=== PATIENT | female | born 1965 | race Caucasian/White ===

== ENCOUNTER → 2024-02-09 17:07 | Outpatient (REF) | payer OTHER, SELFPAY | LOC: RAD 17:07 | PROVIDERS: ATTENDING PHYSICIAN Physician Assistant Medical | DX: R07.89 Other chest pain (principal) | CPT/HCPCS: 71046 ==

== ENCOUNTER → 2024-11-17 11:02 | Outpatient (REF) | payer OTHER, SELFPAY | LOC: HWWDC 11:02 | PROVIDERS: ATTENDING PHYSICIAN Physician Assistant Medical | DX: Z12.31 Encounter for screening mammogram for malignant neoplasm of breast (principal); Z13.820 Encounter for screening for osteoporosis | CPT/HCPCS: 77063; 77067; 77080 ==

== ENCOUNTER → 2025-03-01 15:03 | Outpatient (REF) | payer OTHER, SELFPAY | LOC: WDC 15:03 | PROVIDERS: ATTENDING PHYSICIAN Physician Assistant Medical | DX: R92.30 Dense breasts, unspecified (principal) | CPT/HCPCS: 76641 ==

== ENCOUNTER → 2025-07-21 07:15 | Outpatient (REF) | payer OTHER, SELFPAY | LOC: PAVMRI 07:15 | PROVIDERS: ATTENDING PHYSICIAN Physical Medicine & Rehabilitation; FAMILY PHYSICIAN Physician Assistant Medical | DX: M54.12 Radiculopathy, cervical region (principal) | CPT/HCPCS: 72141 ==

== ENCOUNTER → 2025-08-19 12:52 | Outpatient (REF) | payer OTHER, SELFPAY | LOC: HWRAD 12:52 | PROVIDERS: ATTENDING PHYSICIAN Student in an Organized Health Care Education/Training Program | DX: R22.1 Localized swelling, mass and lump, neck (principal) | CPT/HCPCS: 76536 ==

== ENCOUNTER → 2025-09-02 08:52 | Outpatient (REF) | payer OTHER, SELFPAY | LOC: RAD 08:52 | PROVIDERS: ATTENDING PHYSICIAN Physician Assistant Medical | DX: R10.84 Generalized abdominal pain (principal); K52.9 Noninfective gastroenteritis and colitis, unspecified | CPT/HCPCS: 74177; Q9967 ==

== ENCOUNTER 2025-10-21 08:45 | Emergency (ER) | payer OTHER, SELFPAY ==
[2025-10-21 08:53] VITALS: BP 112/60
[2025-10-21 09:13] LABS: Hematocrit 37.5 % (37.0-47.0); Hemoglobin 13.1 g/dL (12.0-16.0); Mean Corp Hgb Conc. 34.9 g/dL (33.0-37.0); Mean Corpuscular Volume 92.6 fL (81.0-99.0); Nucleated Red Blood Cells % 0 %; Platelet Count 197 10^3/uL (130-400); Red Cell Dist. Width 12.1 % (11.5-14.5)
[2025-10-21 09:18] LABS: Urine Character Clear (Clear)
[2025-10-21 09:29] LABS: ALT (SGPT) 34 U/L (0-35); AST (SGOT) 38 U/L (14-36); Albumin 4.3 g/dl (3.5-5.0); Alkaline Phosphatase 76 U/L (38-126); Blood Urea Nitrogen 12 mg/dl (7-17); Calcium 9.4 mg/dl (8.4-10.2); Carbon Dioxide 30 mmol/L (22-30); Chloride 103 mmol/L (98-107); Glucose 118 mg/dl (70-99); Lipase 36 U/L (23-300); Potassium 4.2 mmol/L (3.5-5.1); Sodium 139 mmol/L (135-145); Total Protein 7.4 g/dl (6.3-8.2); Urine Red Blood Cell 0-2 /HPF (0-2); Urine White Cell 0-2 /HPF (0-5); eGFR > 60.00
--- NOTE | 2025-10-21 10:06 | ED.GENMED ---
History of Present Illness
General
Chief Complaint: Abdominal Pain
Source: patient
Exam Limitations: none
Time Seen by Provider: 10/21/25 09:45
History of Present Illness
History of Present Illness:
60yoF with no significant past medical history presenting with her for evaluation of abdominal pain. She reports 2 days of lower abdominal pain which she describes as sharp. She had 3 bowel movements on day one of her symptoms which is
unusual for her. Her pain worsened yesterday and she was having trouble standing at work. She reports subjective fevers at home with chills. She noticed that her urine appeared pink today and decided to come to the ED for evaluation. Last bowel
movement was this morning. Of note, patient was seen at an ED in [place] in May of this year for bloody stool. She was diagnosed with colitis and prescribed antibiotics. She was told to have a colonoscopy which is scheduled for next month. Last
colonoscopy was about 4 years ago which showed polyps but was otherwise normal. No prior abdominal surgeries.
Phy Exam
General Physical Exam
General Presentation: well appearing and no apparent distress
General age: appears stated age
General Skin: warm and dry
General Habitus: normal
General Mental: alert
ENT Exam
ENT Exam: normocephalic
Pulmonary Exam
Pulmonary Exam: no respiratory distress
Gastrointestinal Exam
Gastrointestinal Exam: soft, non distended and other (+Tenderness to lower abdomen, pain worse in LLQ. Abdomen soft, non-distended. No guarding.)
Neurological Exam
Neurological Exam: alert
Jerri Coma Scale
Eye Opening: Spontaneous
Verbal Response: Oriented
Motor Response: Obeys Commands
GCS Total Score: 15
Skin Exam
Skin Exam: normal color and warm/dry
Psychiatric Exam
Psychiatric Exam: normal mood/affect
Sepsis
Sepsis Screening
Sepsis Assessment: Sepsis Ruled Out
Sepsis Screen
Sepsis Screen: Sepsis Ruled Out
Date: 10/21/25
Time: 15:31
Course
Orders/Labs/Results
Orders:
Orders
10/21/25 09:05
Complete Blood Count/With Diff Urgent
Comprehensive Metabolic Panel Urgent
Lipase Urgent
Urinalysis Reflex To Culture Urgent
Date Specimen was Collected: 10/21/25
Time Specimen was Collected: 08:57
Urine Microscopic Reflex Cult Urgent
Urine Culture Urgent
RAS Source: U
Specimen Description:
Date Specimen was Collected: 10/21/25
Time Specimen was Collected: 08:57
10/21/25 10:05
CT Abd/pel W Iv And Oral Contr Urgent
Comment:
Reason For Exam: lower abd pain, subjective fevers
0.9% Sodium Chloride 1000 ml [Nss] 1,000 ml IV BOLUS
Iohexol [Omnipaque] See Protocol PO NOW STA
10/21/25 14:35
Amoxicillin 875 mg/Clav 125 mg [Augmentin 875 mg/125 mg] 1 tablet PO NOW STA
Dicyclomine [Bentyl] 20 mg PO NOW STA
Ketorolac [Toradol] 30 mg IV NOW STA
Abnormal Lab Results
10/21/25
09:05
WBC 12.6 H 10^3/uL
(4.8-10.8)
RBC 4.05 L 10^6/uL
(4.20-5.40)
MCH 32.3 H pg
(27.0-31.0)
Absolute Neuts (auto) 10.5 H 10^3/uL
(1.4-6.5)
Absolute Monos (auto) 0.8 H 10^3/uL
(0.1-0.6)
Neutrophils % 83.6 H %
(42.2-75.2)
Lymphocytes % 9.4 L %
(20.5-51.1)
Glucose 118 H mg/dl
(70-99)
AST 38 H U/L
(14-36)
Ur Occult Blood Reflex 1+ A
(Negative)
Leukocyte Esterase Rfl 1+ A
(Negative)
Urine Bacteria (Reflex) Few A
(Negative)
Urine Albumin (Reflex) 1+ A
(Neg - Trace)
10/21/25 09:05
10/21/25 09:05
Vital Signs
Initial and Last Documented VS:
Initial Vital Signs
Temp Pulse Resp BP Pulse Ox
98.1 F 72 20 112/60 96
10/21/25 08:53 10/21/25 08:53 10/21/25 08:53 10/21/25 08:53 10/21/25 08:53
Last Documented Vital Signs
Temp Pulse Resp BP Pulse Ox
98.6 F 82 20 125/71 100
10/21/25 10:25 10/21/25 10:25 10/21/25 10:25 10/21/25 10:25 10/21/25 12:30
MDM/Problems Addressed
Differential Diagnosis Includes:
60yoF here with lower abd pain and subjective fevers/chills x 2 days. Noticed pink tinged urine this AM. Temp 98.1 on arrival with otherwise normal vitals. She is well appearing in no distress. No signs of peritonitis on abdominal exam. Differential
diagnosis includes but is not limited to: UTI, pyelonephritis, kidney stone, diverticulitis, colitis
Initial ED plan: Labs obtained in triage. White count elevated at 12.6. No overt signs of infection on urinalysis. Will check CT abdomen IV/PO contrast.
*Pulse Oximetry
SaO2: 96
Oxygen Mode of Delivery: Room air
Patient hypoxic: no
*Critical Care Note
Total Time (30-74mins, 75-104mins- exclusive of procedures): Not Applicable
Update Note
Update Note:
CT shows acute uncomplicated colitis of the distal descending and proximal sigmoid colon. No other acute findings on imaging. Given chills and leukocytosis, will cover with antibiotics. Repeat temperature 98.6. No indication for hospitalization.
Prescriptions for Augmentin and Bentyl sent to pharmacy. She has a colonoscopy scheduled in 3 weeks. She was advised to call her GI team today and ED return precautions reviewed. Patient in agreement with plan and she was discharged in stable
condition.
ED Attending Note
-
Portions of this chart may have been created with voice recognition software.� Occasional wrong word or��sound alike� substitutions may have occurred due to the inherent limitations of voice recognition software.
Discharge Plan
Departure
Patient Disposition: Home (Routine Discharge)
Date of Disposition: 10/21/25
Time of Disposition: 15:09
Patient with high blood pressure during this ER visit?: No
Discharge Problem:
Acute colitis
Instructions: Colitis (DC)
Prescriptions:
New
amoxicillin-pot clavulanate 875-125 mg tablet
1 tab PO BID Qty: 19 0RF
dicyclomine 20 mg tablet
20 mg PO QID PRN (Reason: abdominal pain) Qty: 20 0RF
Referrals:
Josefina Jacobsen PA [Family Provider, Family Practice]
Activity Restrictions/Additional Instructions:
Take antibiotics as prescribed. Take Bentyl as needed for abdominal cramping.
Please follow-up with your GI team and family doctor. Return to the ER with any worsening symptoms including fevers, severe pain, or bloody stools.
Interventions
Interventions:
*Risk Screen - Suicide Last Done: 10/21/25 08:53
*General Assessment Last Done: 10/21/25 08:53
*Neglect/Abuse Screening Last Done: 10/21/25 08:53
*ED- Fall Risk Assessment Last Done: 10/21/25 10:25
*ED COVID-19 Vaccine History Last Done: 10/21/25 10:25
*ED Influenza Vaccine History Last Done: 10/21/25 10:25
OC-Klnutb-Vuuekttgkt Assessment Last Done: 10/21/25 10:25
Discharge Date and Time
Discharge Date/Time: 10/21/25 15:34
Print Language: UKRAINIAN
[2025-10-21 10:25] VITALS: BP 125/71; BMI 20.8
[2025-10-21] MEDS: OMNIPAQUE 50 ML PO (10:26)
[2025-10-21] MEDS: NSS 1000 IV (10:27)
[2025-10-21] MEDS: AUGMENTIN 875 MG/125 MG 1 TABLET PO (14:44)
[2025-10-21] MEDS: TORADOL 30 MG IV (14:45)
[2025-10-21] MEDS: BENTYL 20 MG PO (14:45)
[2025-10-21 15:32] VITALS: BP 126/71
== END 2025-10-21 15:34 | disposition home or self-care (01) ==
LOC: EMR 08:45
PROVIDERS: Student in an Organized Health Care Education/Training Program; EMERGENCY PHYSICIAN Emergency Medicine; FAMILY PHYSICIAN Physician Assistant Medical
DX: K52.9 Noninfective gastroenteritis and colitis, unspecified (principal)
CPT/HCPCS: 99284; 96374; 96361; 74177; 80053; 81003; 81015; 83690; 85025; 87086; Q9967